=== PATIENT | male | born 1980 | race Caucasian/White ===

== ENCOUNTER 2021-08-27 15:35 | Emergency (ER) | payer BC, OTHER ==
[~2021-08-27] VITALS: Ht 182.9 cm; Wt 88.5 kg
[2021-08-27 16:20] LABS: ABSOLUTE NEUTROPHILS 2.6 thou/uL (1.4-8.2); BASOPHILS 0.4 % (0.0-2.0); HEMATOCRIT 44.2 % (42.0-52.0); HEMOGLOBIN 15.5 gm/dL (14.0-18.0); LYMPHOCYTES 43.5 % (24.0-44.0); MCH 31.9 pg (26.0-34.0); MCHC 35.1 g/dL (28.0-37.0); MCV 90.8 fL (80.0-100.0); MONOCYTES 7.1 % (1.0-8.0); PLATELET COUNT 191 thou/uL (150-400); RBC 4.87 mil/uL (4.50-6.00); RDW 11.5 % (10.5-14.5); WBC 5.4 thou/uL (4.0-11.0)
[2021-08-27 16:37] LABS: CALCIUM 9.2 mg/dL (8.5-10.1); POTASSIUM 3.9 mmol/L (3.5-5.1)
[2021-08-27 16:40] LABS: TOTAL BILIRUBIN 0.4 mg/dL (0.2-1.0); TOTAL PROTEIN 7.1 g/dL (6.4-8.2)
[2021-08-27 17:01] LABS: URINE BILIRUBIN NEGATIVE (Negative); URINE BLOOD TRACE (Negative); URINE CLARITY CLEAR; URINE COLOR YELLOW; URINE GLUCOSE-RANDOM* NEGATIVE (Negative); URINE KETONES NEGATIVE (Negative); URINE LEUKOCYTES-REFLEX NEGATIVE (Negative); URINE NITRITE-REFLEX NEGATIVE (Negative); URINE PROTEIN (DIPSTICK) NEGATIVE (Negative); URINE UROBILINOGEN 0.2 E.U./dl (0.2-1.0)
[2021-08-27 17:27] VITALS: BP 145/88
--- NOTE | 2021-08-28 12:58 | EKG ---
[address] [address] [place] [address] ELECTROCARDIOGRAM REPORT Name: BRITTANIETusharBARTOLOME Room #: [facility]#: [id number] Admission: 08/27/21 Attend Phys: Discharge: 08/27/21 Date of : 78 Report #: [id number] 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: : 1980 Requested By: Charles Hutchinson Order Number: [id number] MD: Horacio Norris Measurements Intervals [place] Rate: 70 P: 31 NH: 164 QRS: 51 QRSD: 81 T: 47 QT: 366 QTc: 395 Interpretive Statements Sinus rhythm Probable left atrial enlargement Baseline wander in lead(s) II,III,aVL,aVF,V1,V2 No previous ECG available for comparison Electronically Signed On 08-28-2021 12:58:04 HISTORIOGR[employer]HY TEACHER by Horacio Norris [email or web address] <ELECTRONICALLY SIGNED> By: Horacio Norris MD, [facility] 08/28/21 1258 1553 1553 Horacio Norris MD, FACC /EPI
== END 2021-08-27 17:28 | disposition home or self-care (01) ==
LOC: ER 15:35
PROVIDERS: Emergency Medicine
DX: K80.20 Calculus of gallbladder without cholecystitis without obstruction (principal); Z90.49 Acquired absence of other specified parts of digestive tract